=== PATIENT | male | born 1985 | race Caucasian/White ===

== ENCOUNTER 2016-09-03 14:27 | Emergency (ER) | payer OTHER ==
--- NOTE | 2016-09-03 16:00 | Emergency Department Report ---
Chief Complaint: High BP Stated Complaint: HIGH BLOOD PRESSURE Time Seen by Provider: 09/03/16 15:50 - HPI History of Present Illness: syncope spell today witnessed 911 called to pcp who sent here bp elevated no pmh no psh no meds - ROS Review of Systems: no cp no sob no n/v - Exam Vital Signs: Vital Signs 09/03/16 15:27 Temperature 98.3 F Pulse Rate 56 L Respiratory 18 Rate Blood Pressure 176/101 O2 Sat by Pulse 100 Oximetry MSE screening note: Focused history and physical exam performed. Due to findings the following was ordered: ED Disposition for MSE Condition: Stable
--- NOTE | 2016-09-03 16:25 | Cat Scan Report ---
CRANIAL CT SCAN: History: Syncope. Serial contiguous axial images were obtained through the cranium. Intravenous contrast material was not administered. The ventricles are normal in size and appearance. There is no mass effect or midline shift. No areas of abnormally increased or decreased attenuation are seen. No mass lesion is seen. The mastoid air cells and visualized portions of the sinuses are normal. IMPRESSION: Cranial CT scan within normal limits.
--- NOTE | 2016-09-03 16:41 | XRay Report ---
CHEST TWO VIEWS: 09/03/16 14:27:00 CLINICAL: Chest pain. COMPARISON: None FINDINGS: Mild respiratory motion on the exam. Normal heart and pulmonary vasculature. The lungs are normally expanded and clear.Thoracic scoliosis. IMPRESSION: No acute cardiopulmonary process.
[2016-09-03 16:48] LABS: Basophils % (Auto) 1.1 % (0.0-1.8); Eosinophils % (Auto) 2.2 % (0.0-4.3); Hemoglobin 14.2 gm/dl (11.8-15.2); Mean Corpuscular HGB Conc 32 % (32-34); Mean Corpuscular Hemoglobin 29 pg (28-32); Mean Corpuscular Volume 90 fl (84-94); Platelet Count 258 K/mm3 (140-440); Red Blood Count 4.86 M/mm3 (3.65-5.03); Red Cell Distribution Width 13.6 % (13.2-15.2); White Blood Count 9.3 K/mm3 (4.5-11.0)
[2016-09-03 17:00] LABS: Alanine Aminotransferase 15 units/L (7-56); Albumin 4.6 g/dL (3.9-5); Albumin/Globulin Ratio 1.5 %; Alkaline Phosphatase 69 units/L (35-129); Anion Gap 19 mmol/L; Bilirubin,Total 0.3 mg/dL (0.1-1.2); Blood Urea Nitrogen 7 mg/dL (9-20); Calcium 9.4 mg/dL (8.4-10.2); Carbon Dioxide 26 mmol/L (22-30); Chloride 100.9 mmol/L (98-107); Creatine Kinase 168 units/L (55-170); Creatine Kinase MB 1.6 ng/mL (0.0-4.0); Glucose 86 mg/dL (75-100); Sodium 142 mmol/L (137-145); Total Protein 7.7 g/dL (6.3-8.2)
[2016-09-03] MEDS ORDERED: TORADOL IV ONE (23:41)
[2016-09-03] MEDS ORDERED: REGLAN IV ONE (23:41)
[2016-09-03] MEDS ORDERED: NACL 0.9% 500 ML 500 ML IV ONE (23:41)
[2016-09-03] MEDS ORDERED: BENADRYL IV ONE (23:41)
[2016-09-03] MEDS ORDERED: VALIUM IV ONE (23:41)
--- NOTE | 2016-09-03 23:58 | Emergency Department Report ---
HPI - General Chief Complaint: High BP Time Seen by Provider: 09/03/16 22:37 - HPI HPI: The patient is a 31-year-old male who presents for evaluation of headache and syncope. The patient reports headache since noon earlier today, 10/10 in severity at its worse, currently 7/10 in severity, aching in quality, generalized and bilateral, and constant since onset. 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 He states that shortly after onset of headache and lightheadedness she passed out. The patient denies fever, neck pain, neck stiffness, vision or hearing changes, smell or taste changes, paresthesias, facial drooping, slurred speech, seizure-like activity, urine or bowel incontinence or retention, or other focal neurological deficit. ED Past Medical Hx - Past Medical History Previous Medical History?: No - Surgical History Past Surgical History?: No - Social History Smoking Status: Never Smoker Substance Use Type: Alcohol - Medications Home Medications: Home Medications Medication Instructions Recorded Confirmed Last Taken Type Acetaminophen/Codeine [Tylenol #3] 1 tab PO Q6H PRN #10 tab 09/04/16 Unknown Rx Ondansetron [Zofran TAB] 4 mg PO Q8HR PRN #15 tablet 09/04/16 Unknown Rx ED Review of Systems ROS: Stated complaint: HIGH BLOOD PRESSURE Other details as noted in HPI Constitutional: denies: fever; reports lightheadedness ENT: denies: throat or neck pain Respiratory: denies: cough, shortness of breath Cardiovascular: denies: chest pain Endocrine: denies unexplained weight loss or gain Gastrointestinal: denies: abdominal pain, nausea Genitourinary: denies: dysuria Musculoskeletal: denies: leg swelling Skin: denies: rash Neurological: reports headache Hematological/Lymphatic: denies: easy bleeding or easy bruising Psych: denies sadness or hopelessness Physical Exam - Physical Exam Vital Signs: Vital Signs 09/03/16 09/03/16 15:27 22:22 Temperature 98.3 F Pulse Rate 56 L 57 L Respiratory 18 18 Rate Blood Pressure 176/101 Blood Pressure 169/82 [Left] O2 Sat by Pulse 100 99 Oximetry Physical Exam: General: well-nourished, well-developed, no acute distress Head: Normocephalic, atraumatic Eyes: normal sclera ENT: Mucous membranes are pale and dry Neck: No neck stiffness, no cervical adenopathy Respiratory: Breath sounds equal bilaterally, no wheezing, rales, or rhonchi Cardio: S1 and S2 present, no murmurs, rubs, gallops, capillary refill is delayed Abdomen: Normoactive bowel sounds, soft abdomen, no rigidity, no guarding or rebound tenderness Chest WALL/Back: No tenderness to palpation of the chest wall, no CVA tenderness with percussion Musc: No pitting edema Skin: No rash Neuro: alert oriented x4, normal cognition, speech normal, PERRL, EOM intact, no facial drooping, no uvula or tongue deviation on protrusion, no deficit with rotation of neck or shoulder shrug, no obvious gross motor deficit in the upper or lower extremities with flexion or extension at the shoulder, elbow, wrist, hip, knee, or ankle bilaterally, no obvious gross sensation deficit to crude touch or 2 pt discrimination, 2+ symmetric reflexes on DTR testing, no coordination deficit with [id number] or [id number] testing, romberg negative, patient able to to ambulate without abnormal gait Psych: Normal affect ED Course Vital Signs 09/03/16 09/03/16 15:27 22:22 Temperature 98.3 F Pulse Rate 56 L 57 L Respiratory 18 18 Rate Blood Pressure 176/101 Blood Pressure 169/82 [Left] O2 Sat by Pulse 100 99 Oximetry ED Medical Decision Making - Lab Data Result diagrams: 09/03/16 16:23 09/03/16 16:23 - Medical Decision Making The patient was seen and examined by myself. The patient is placed on a front desk monitor and continuous pulse ox. On initial evaluation, the patient was found to be in no distress. EKG was negative for findings suggestive of acute cardiac infarct. Labs and imaging are obtained. The patient is given 1 L normal saline fluid bolus for treatment of dehydration and lightheadedness, and IV Reglan, Benadryl, and Toradol for his headache. Lab results were non- concerning including levels of troponin, WBC, hemoglobin, hematocrit, electrolytes, renal function. CT scan of the head is negative for acute intracranial disease process. The patient was reevaluated and reported that their symptoms were markedly improved. The patient is stable for discharge with outpatient follow-up. The patient is given follow-up and return instructions. The patient expressed understanding and agreed with the plan. The patient is discharged in stable condition. Critical care attestation.: If time is entered above; I have spent that time in minutes in the direct care of this critically ill patient, excluding procedure time. ED Disposition Clinical Impression: Dehydration, Orthostatic syncope Acute nonintractable headache Qualifiers: Headache type: unspecified Qualified Code(s): R51 - Headache Disposition: DISCHARGED TO HOME OR SELFCARE Is pt being admited?: No Does the pt Need Aspirin: No Condition: Stable Instructions: Syncope (ED), Acute Headache (ED), Dehydration (ED), Hypertension (ED) Prescriptions: Acetaminophen/Codeine [Tylenol #3] 1 tab PO Q6H PRN #10 tab PRN Reason: Pain Ondansetron [Zofran TAB] 4 mg PO Q8HR PRN #15 tablet PRN Reason: Nausea Referrals: PRIMARY CARE, [Primary Care Provider] - 3-5 Days Time of Disposition: 23:43
[2016-09-04 02:23] VITALS: BP 135/69
== END 2016-09-04 02:22 | disposition home or self-care (01) ==
LOC: ED 14:27
DX: E86.0 Dehydration (principal); R55 Syncope and collapse; R51 Headache
CPT/HCPCS: 36415; 70450; 71020; 80053; 82550; 82553; 84484; 85025; 93005; 93010; 96361; 96374; 96375; 99285; J1200; J1885; J2765; J3360; J7040